=== PATIENT | male | born 1975 | race Caucasian/White ===

== ENCOUNTER 2023-11-27 17:51 | Emergency (ER) | payer MEDICARE, OTHER, SELFPAY ==
[2023-11-27 18:32] VITALS: BP 135/82; PULSE 114; RESP 24; O2SAT 96; BMI 28.8
--- NOTE | 2023-11-27 18:48 | ED.GENADULT ---
HPI - General Adult General Date Seen: 11/27/23 Chief complaint: Shortness of Breath/Dyspnea Stated complaint: Diff breathing, weak, covid at work place Time Seen by Provider: 11/27/23 18:48 History of Present Illness HPI narrative: 48 yo M presenting to the ER today with cough and nasal congestion. He was exposed to another person with COVID 3 days ago on Friday by a co-worker. Yesterday he started having nasal congestion that he initially thought were allergies. 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 He started having symptoms yesterday like allergies. He had some mild stuffy nose. He was able to go to work this morning but while at work started developing worsening symptoms. He has developed more of a sore throat, a nonproductive cough. He has also developed chills and subjective fevers, body aches, fatigue, headache. He has normal sense of taste and smell. He was feeling weak and tired and call the phone triage line today. They told him to come to the ER immediately (or call 911). He did not feel like he was critically ill so he had his family driving here to the ER. Related Data Home Medications ?Medication ?Instructions ?Recorded ?Confirmed No Known Home Medications 11/27/23 11/27/23 Allergies Allergy/AdvReac Type Severity Reaction Status Date / Time tetanus and diphtheria Allergy Severe Anaphylaxis Verified 11/27/23 18:38 toxoids PFSH PFSH Social History Smoking Status: Never smoker Do you use any of these nicotine containing products: None How often do you have a drink containing alcohol: monthly or less AUDIT-C Alcohol total score: 1 Non-prescribed substance use: denies use Exam Narrative: Exam Narrative: Constitutional: Appears well-developed and well-nourished. Alert. Conversant. Non toxic. HENT: Head: Atraumatic. Nose: Nose normal. Mouth/Throat: Oral mucosa is clear and moist. no trismus. Pharynx normal. Tonsils symmetric. No tonsillar enlargement, erythema, or exudate. Recent dental extractions from left maxilla look good. No signs of infection. No bleeding Right ear: Pinna, mastoid, canal, TM are normal. Left ear: Pinna, mastoid, canal are normal. There is some clear fluid behind the TM. No erythema or bulging Eyes: Conjunctivae normal. EOM normal. Pupils equal, round, and reactive to light. No scleral icterus. Neck: Normal range of motion. Neck supple. No tracheal deviation present. Cardiovascular: Normal rate, regular rhythm. No gallop. No friction rub. No murmur heard. Symmetric radial artery pulses Pulmonary/Chest: Effort normal. No stridor. No respiratory distress. No wheezes. No rales. No rhonchi . No tenderness. Abdominal: Soft. No distension. No mass. No tenderness. No rebound. No guarding. Musculoskeletal: RUE: Normal range of motion. No tenderness. No deformity LUE: Normal range of motion. No tenderness. No deformity RLE: Normal range of motion. No edema. No tenderness. No deformity LLE: Normal range of motion. No edema. No tenderness. No deformity Lymph: No cervical adenopathy. Neurological: Alert and oriented to person, place, and time. Normal strength. CN II-VII intact. No sensory deficit. GCS eye subscore is 4. GCS verbal subscore is 5. GCS motor subscore is 6. Normal coordination Skin: Skin is warm and dry. No rash noted. No pallor. Normal capillary refill. Psychiatric: Normal mood. Normal affect. Const: Vital Signs, click to edit/add: Vital Signs - 24 hr 11/27/23 18:32 11/27/23 20:20 Temperature 99.6 F Pulse Rate [Pulse Oximeter] 114 H 105 H Respiratory Rate 24 20 Blood Pressure [Ri t Upper Arm] 135/82 146/90 H Pulse Oximetry 96 95 Oxygen Delivery Me thod Room Air Room Air Course Vital Signs Vital signs: Initial Vital Signs Respiratory Depth Normal 11/27/23 18:28 Vital Signs Pulse Rate 114 H 11/27/23 18:32 Respiratory Rate 24 11/27/23 18:32 Blood Pressure 135/82 11/27/23 18:32 Pulse Oximetry 96 11/27/23 18:32 Oxygen Delivery Method Room Air 11/27/23 18:32 Temperature 99.6 F 11/27/23 20:20 Pulse Rate 105 H 11/27/23 20:20 Respiratory Rate 20 11/27/23 20:20 Blood Pressure 146/90 H 11/27/23 20:20 Pulse Oximetry 95 11/27/23 20:20 Oxygen Delivery Method Room Air 11/27/23 20:20 Medications Administered Medications: Discontinued Medications Generic Name Dose Route Start Last Admin Trade Name Rosina PRN Reason Stop Dose Admin Ibuprofen 600 mg 11/27/23 19:05 11/27/23 19:17 Ibuprofen 600 Mg Tablet PO 11/27/23 19:06 600 mg ONCE ONE Administration Medical Decision Making MDM Narrative Medical decision making narrative: This patient presents for evaluation of symptoms began yesterday with mild nasal congestion and involved today to include nasal congestion, sore throat, cough, body aches, headache, fatigue, dizziness.. This is consistent with an upper respiratory tract infection. Viral testing is positive for coronavirus.. There is no signs at this point of serious bacterial infection such as OM, RPA, epiglottitis, [employer], strep pharyngitis, pneumonia, sinusitis, meningitis, bacteremia, serious bacterial infection. Given clear lungs, no hypoxia and no respiratory distress I do not feel a CXR is indicated at this point as the probability of bacterial pneumonia is very unlikely. There are no significant gastrointestinal symptoms at this point and no signs of dehydration. Close followup with primary care physician is indicated. Return to ED for fever > 103, protracted vomiting, confusion, or other worsening. With positive COVID, he would be in the window for antiviral treatment. However he really does not have any high-risk underlying illnesses. Discussed and evaluate with the patient. He and I agree that at this point the side effects of Paxlovid likely away the benefit. Therefore will treat supportively for now. Lab Data Labs: Lab Results 11/27/23 Range/Units 18:40 SARS-CoV-2 (PCR) POSITIVE SARS-CoV-2 A (Negative) Influenza Type A (PCR) Negative PCR FLU A (Negative) Influenza Type B (PCR) Negative PCR FLU B (Negative) RSV (PCR) Negative PCR RSV (Negative) Discharge Plan Discharge Clinical Impression: COVID-19 Patient Disposition: Home, Self-Care Condition: Stable Instructions: COVID-19 (Coronavirus Disease 2019) (ED) Additional Instructions: As we discussed, please come back to the ER right away if you have worsening trouble breathing, fevers, uncontrolled vomiting, diarrhea, dehydration, weakness, or any concerns. Prescriptions: No Action No Known Home Medications Follow Up/Referrals: Provider,Not a Local [Primary Care Provider] - Stand Alone Forms: [employer] Info Instructions
[2023-11-27] MEDS: IBUPROFEN 600 MG TABLET PO (19:17)
[2023-11-27 20:15] LABS: PCR FLU A Negative PCR FLU A (Negative); PCR FLU B Negative PCR FLU B (Negative); PCR RSV Negative PCR RSV (Negative); SARS PCR* POSITIVE SARS-CoV-2 (Negative)
[2023-11-27 20:20] VITALS: BP 146/90; PULSE 105; RESP 20; TEMP 37.6; O2SAT 95
== END 2023-11-27 21:07 | disposition home or self-care (01) ==
PROVIDERS: Emergency Provider Emergency Medicine
DX: U07.1 COVID-19 (principal); R06.02 Shortness of breath
CPT/HCPCS: 87631; 99282; 99283; A9270

== ENCOUNTER 2023-11-29 09:02 | Emergency (ER) | payer MEDICARE, OTHER, SELFPAY ==
[2023-11-29 09:31] VITALS: BP 131/88; PULSE 94; RESP 24; TEMP 35.9; O2SAT 99; BMI 27.2
--- NOTE | 2023-11-29 10:04 | CRLHL7_ITS ---
For Patients: As a result of the Century Cures Act, medical imaging exams and procedure reports are released immediately into your electronic medical record. You may view this report before your referring provider. If you have questions, please contact your health care provider. INDICATION: Shortness of breath. TECHNIQUE: Chest 1 view. COMPARISON: 03/27/2012. FINDINGS: Cardiovascular and mediastinum: Heart size and vasculature are normal in caliber and appearance. Lungs and pleural spaces: Lungs are clear. No sign of infiltrate or mass. No sign of pleural effusion. No pneumothorax. Bones and soft tissues: No significant findings. IMPRESSION: Unremarkable chest. Dictated by Martinez Nagel MD @ 11/29/2023 11:53:37 AM (Electronically Signed)
--- NOTE | 2023-11-29 10:04 | ED_ITS ---
HPI - SOB/Dyspnea General Time Seen by Provider: 10:04 Date Seen: 11/29/23 Chief Complaint: Shortness of Breath/Dyspnea Stated Complaint: COVID+, trouble breathing Time Seen by Provider: 11/29/23 09:42 Source: patient, RN notes reviewed and old records reviewed Mode of arrival: ambulatory Limitations: no limitations History of Present Illness HPI Narrative: Ajith is a very pleasant 48-year-old gentleman diagnosed with COVID on November 26 she returns today after 2 separate episodes of significant shortness of breath. Patient notes this morning he awoke at 4 and could not catch his breath. He notes this persisted for a number of minutes. He does have a cough but it is not been significantly productive. Does note that he was sleeping flat on his back. This happened a 2nd time this morning and thus he was very concerning came to the ER. Does not have any chest pain, vomiting, diarrhea. He has been able to take in fluids. He did have ibuprofen last night but did not have any yet this morning. Filled denies history of DVT, hypercoagulable for are a state in family members, preserved ejection fraction fever although he notes feeling hot and cold, any disorder cardiology lower extremity swelling or calf pain. Is patient does not use tobacco, have underlying heart disease or lung issues. Finding he is not currently on medications. Notes no problems with his kidneys in the past. Related Data Previous Rx's ?Medication ?Instructions ?Recorded albuterol sulfate 90 mcg/actuation 2 puff inhalation QID #8.5 grams 11/29/23 aerosol inhaler nirmatrelvir 300 mg (150 mg See Rx Instructions PO .COMPLEX 11/29/23 x2)-ritonavir 100 mg tablet,dose #30 ea pack (Paxlovid) Allergies Allergy/AdvReac Type Severity Reaction Status Date / Time tetanus and diphtheria Allergy Severe Anaphylaxis Verified 11/29/23 09:35 toxoids Review of Systems Status of ROS: Reports: 10 or more systems reviewed and unremarkable except as noted in History and below Const: Reports: chills and fatigue; Denies: fever Eyes: Denies: change in vision ENMT: Reports: throat pain (His initial symptom of COVID) and nasal congestion; Denies: neck pain, throat swelling, difficulty swallowing or hoarseness Cardio: Reports: shortness of breath with exertion; Denies: chest pain, palpitations, edema or swelling of feet/ankles Resp: Reports: shortness of breath and cough; Denies: wheezing GI: Denies: abdominal pain, nausea, vomiting, diarrhea or difficulty swallowing : Denies: painful urination Musculo: Denies: back pain or neck pain Endo: Reports: fatigue Allergy/Immuno: Denies: throat swelling or wheezing PFSH PFSH Social History Smoking Status: Never smoker Do you use any of these nicotine containing products: None How often do you have a drink containing alcohol: monthly or less AUDIT-C Alcohol total score: 1 Non-prescribed substance use: denies use Exam Narrative: Exam Narrative: Alert and oriented. Clearly feeling poorly but not toxic in appearance. Eyes are clear without injection. Oral cavity with moist mucous membranes. Posterior oropharynx without erythema or exudate. Neck is supple without lymphadenopathy. Heart with regular rate and rhythm in the 80s. Lungs are clear bilaterally. Abdomen soft nontender. Lower extremities without edema or calf tenderness. Const: Vital Signs, click to edit/add: Vital Signs - 24 hr 11/29/23 09:31 Temperature 96.7 F L Pulse Rate [Pulse Oximeter] 94 Respiratory Rate 24 Blood Pressure [Ri ght Upper Arm] 131/88 Pulse Oximetry 99 Oxygen Delivery Me thod Room Air Documenting provider has reviewed patient's vital signs: yes Course Course ED Course: Patient had the onset of COVID symptoms on November 25 after exposure on November 23. Today is day 4 of symptoms. He had previously been seen on November 26 and decision at that time was not to use Paxlovid given his lack of high risk comorbidities. Today he presents with reassuring vital signs and oximetry but with 2 episodes of shortness of breath. Initially we spoke about p ossibility of PE, pneumonia, worsening COVID, heart issues. At this time I initially suggest blood work including D-dimer and chest x-ray. He does tell me he is very afraid of needles and we speak about the possibility of PE. Given his normal oximetry at 98-99% and lack of tachycardia, lack of lower extremity symptoms history of DVT the odds of a PE are extremely low in this gentleman. He is declining blood draw at this time but agreeable to chest x-ray. Will also give him a dose of ibuprofen.. He has no evidence of heart failure, denies chest pain and does not have a history of OK. he has a remote history of SVT with ablation complicated by bruising of his lower extremities but no recurrence over the past 10 years. Plan is to discharge him home on Paxlovid and an inhaler if chest x-ray okay. Vital Signs Vital signs: Initial Vital Signs Respiratory Effort Normal, Spontaneous, Non-Labored 11/29/23 09:21 Respiratory Depth Normal 11/29/23 09:21 Vital Signs Temperature 96.7 F L 11/29/23 09:31 Pulse Rate 94 11/29/23 09:31 Respiratory Rate 24 11/29/23 09:31 Blood Pressure 131/88 11/29/23 09:31 Pulse Oximetry 99 11/29/23 09:31 Oxygen Delivery Method Room Air 11/29/23 09:31 Temperature 96.7 F L 11/29/23 09:31 Pulse Rate 94 11/29/23 09:31 Respiratory Rate 24 11/29/23 09:31 Blood Pressure 131/88 11/29/23 09:31 Pulse Oximetry 99 11/29/23 09:31 Oxygen Delivery Method Room Air 11/29/23 09:31 Medications Administered Medications: Discontinued Medications Generic Name Dose Route Start Last Admin Trade Name Freq PRN Reason Stop Dose Admin Ibuprofen 600 mg 11/29/23 10:05 11/29/23 10:13 Ibuprofen 200 Mg Tablet PO 11/29/23 10:06 600 mg ONCE ONE Administration MDM - SOB/Dyspnea MDM Narrative Medical decision making narrative: 1. COVID-no evidence of pneumonia on chest x-ray. Patient's vital signs remained stable with no evidence of hypoxia or tachycardia. Patient is able to take p.o. without difficulty. He did receive ibuprofen 800 mg. At this time will place him on Paxlovid. He has no history of problems with his kidney and is not currently on any medications. He will need to start that today. Also placing him on albuterol inhaler 2 puffs q.4 hours p.r.n.. Both were sent to his pharmacy. Discussion regarding not sleeping on his back but Prasad rather on his abdomen or his side is important. Also suggested deep breathing exercises while awake. He is going to try to obtain oximeter so that he can monitor. He will need to return if he has persistent O2 saturations below 90%, has vomiting, is worsening. 2. Disposition-home at this time. Return for worsening symptoms and as needed. Medical Records Attestation: I reviewed the patient's medical records. Imaging Data Chest x-ray: Attestation: I have reviewed the pertinent imaging results. My impression: No evidence of infiltrates. Radiologist's impression: Cardiovascular and mediastinum: Heart size and vasculature are normal in caliber and appearance. Lungs and pleural spaces: Lungs are clear. No sign of infiltrate or mass. No sign of pleural effusion. No pneumothorax. Bones and soft tissues: No significant findings. IMPRESSION: Unremarkable chest. Discharge Plan Discharge Clinical Impression: COVID Patient Disposition: Home, Self-Care Condition: Improved Additional Instructions: Chest x-ray does not appear to show any signs of pneumonia. I would recommend starting Paxlovid today. This is an antiviral medication. It does not taste very good but you should notice that your feeling better in 24-36 hours. It prevents worsening of COVID and the complications associated with it. Stay well-hydrated with this medication I have also sent an inhaler prescription to your pharmacy. You can use this every 4 hours if needed for shortness of breath. When you are sleeping, try your best to lay on your stomach or on your side. Do not lay flat on your back. I would also recommend deep breathing exercises every few hours while awake. Take 2 deep breaths cough hard twice and take 2 more deep breaths. I would do this every hour while you are awake. If you have worsening symptoms please return. Monitor oxygen saturations. If you are persistently below 90% you will need to come back to the emergency room. Prescriptions: New albuterol sulfate 90 mcg/actuation HFA aerosol inhaler 2 puff inhalation QID Qty: 8.5 1RF Paxlovid 300 mg (150 mg x 2)-100 mg tablets,dose pack See Rx Instructions .ROUTE .COMPLEX Qty: 30 0RF Rx Instructions: take TWO 150 mg tablets of nirmatrelvir with ONE 100 mg tablet of ritonavir twice daily for 5 days Follow Up/Referrals: Provider,Not a Local [Primary Care Provider] - Stand Alone Forms: [employer] Info Instructions
[2023-11-29] MEDS: IBUPROFEN 200 MG TABLET 600 MG PO (10:13)
== END 2023-11-29 11:39 | disposition home or self-care (01) ==
PROVIDERS: Emergency Provider Family Medicine
DX: U07.1 COVID-19 (principal); R06.02 Shortness of breath
CPT/HCPCS: 71045; 94761; 99283; 99284; A9270